=== PATIENT | female | born 1960 | race Hispanic/Latino ===

== ENCOUNTER → 2017-11-17 | Outpatient (CLI) | payer SELFPAY ==
[~2017-11-17] MED LIST: ASPI-555 PO; CYCL10 PO; ESCI20TA36 PO; ESOM20CA31 PO; FOLI1TAB15 PO; GABA-531 PO; INVA1IVPB IV; LEVO5TAB13 PO; METH2.5T6 PO; METO25TA6 PO; OXYB5TAB10 PO; PRED5TAB PO; PREM3 PO; PROM12.510 PO
== END | disposition home or self-care (01) ==
LOC: RAH 10:53
PROVIDERS: ATTEND Urology
DX: N11.0 Nonobstructive reflux-associated chronic pyelonephritis (principal)
CPT/HCPCS: 76770

== ENCOUNTER 2018-10-27 16:50 | Emergency (ER) | payer OTHER, SELFPAY ==
[2018-10-27] MEDS ORDERED: LIDOCAINE HCL 2% VISCOUS 15 ML UDCUP ONE (17:25)
[2018-10-27] MEDS ORDERED: MAG HYDROX/AL HYDROX/SIMETH ES 30 ML SUSP UDCUP ONE (17:25)
[2018-10-27] MEDS ORDERED: FAMOTIDINE 20MG TAB 20 MG TAB ONE (17:25)
[2018-10-27 17:26] LABS: APPEARANCE,URINE CLEAR (CLEAR); BILIRUBIN,URINE NEGATIVE (NEGATIVE); COLOR,URINE YELLOW (YELLOW); GLUCOSE, URINE (UA) NEGATIVE (NEGATIVE); KETONES,URINE 5 mg/dL (NEGATIVE); LEUKOCYTE ESTERASE ,URINE NEGATIVE (NEGATIVE); NITRATE,URINE NEGATIVE (NEGATIVE); OCCULT BLOOD,URINE LARGE (NEGATIVE); PROTEIN,URINE 100 mg/dL (NEGATIVE); UROBILINOGEN,URINE 0.2 mg/dL (0.2-1.0)
[2018-10-27] MEDS ORDERED: ONDANSETRON ODT 4 MG TAB ONE (17:26)
[2018-10-27 17:35] LABS: BACTERIA,URINE Few /HPF (None Seen); RBC,URINE 0-1 /HPF (0-1)
[2018-10-27 17:36] LABS: AMORPHOUS SEDIMENT,UR Few /LPF (None Seen); MUCUS,URINE Few LPF (None Seen); SQUAMOUS EPITHELIAL CELL,UR Few /HPF (0-2)
[2018-10-27 17:55] LABS: BASOPHILS % (AUTO) 1.2 % (0.0-5.0); EOSINOPHILS % (AUTO) 0.1 % (0.0-8.0); HEMATOCRIT 33.8 % (36-48); MEAN CORPUSCULAR HEMOGLOBIN 30.7 pg (27.0-33.0); MEAN CORPUSCULAR HGB CONC 33.5 g/dL (32.0-36.0); MEAN CORPUSCULAR VOLUME 91.6 fL (79-99); MONOCYTES % (AUTO) 8.9 % (3.0-13.0); NEUTROPHILS % (AUTO) 72.8 % (40.0-77.0); PLATELET COUNT (AUTO) 365 K/uL (130-400); RED BLOOD CELL COUNT(AUTO) 3.69 MIL/uL (4.00-5.50); RED CELL DISTRIBUTION WIDTH 15.9 % (11.0-15.5); WHITE BLOOD COUNT (AUTO) 7.3 K/uL (4.8-10.8)
[2018-10-27 18:09] LABS: ALBUMIN 3.4 g/dL (3.5-5.0); BILIRUBIN,TOTAL 0.6 mg/dL (0.2-1.0); TOTAL PROTEIN, SERUM 7.3 g/dL (6.0-8.3)
[2018-10-27] MEDS ORDERED: PROMETHAZINE HCL 25 MG/ML 1ML AMPULE IM ONE (20:15)
== END 2018-10-27 20:44 | disposition home or self-care (01) ==
LOC: EDH 16:52
DX: K29.70 Gastritis, unspecified, without bleeding (principal); R94.5 Abnormal results of liver function studies; I10 Essential (primary) hypertension; E78.5 Hyperlipidemia, unspecified; K21.9 Gastro-esophageal reflux disease without esophagitis; M19.90 Unspecified osteoarthritis, unspecified site; Z95.1 Presence of aortocoronary bypass graft; Z88.2 Allergy status to sulfonamides
CPT/HCPCS: 36415; 80053; 81001; 83690; 85025; 96374; 99284; J2550

== ENCOUNTER → 2018-11-03 | Outpatient (CLI) | payer OTHER | END | disposition home or self-care (01) | LOC: RAH 07:47 | PROVIDERS: ATTEND Internal Medicine Gastroenterology | DX: K76.0 Fatty (change of) liver, not elsewhere classified (principal); K80.20 Calculus of gallbladder without cholecystitis without obstruction | CPT/HCPCS: 76700 ==

== ENCOUNTER 2019-12-14 15:50 | Observation (INO) | payer OTHER ==
[~2019-12-14] VITALS: Ht 152.4 cm; Wt 56.7 kg
[~2019-12-14 15:50] MED LIST changes: -ASPI-555 PO; +ASPI-556 PO; -OXYB5TAB10 PO; +OXYB5TAB15 PO; -PROM12.510 PO; +PROM12.513 PO
[2019-12-14 16:13] LABS: EOSINOPHILS % (AUTO) 3.7 % (0.0-8.0); HEMATOCRIT 36.4 % (36-48); LYMPHOCYTES % (AUTO) 36.8 % (21.0-51.0); MEAN CORPUSCULAR HEMOGLOBIN 29.4 pg (27.0-33.0); MEAN CORPUSCULAR HGB CONC 32.1 g/dL (32.0-36.0); MEAN CORPUSCULAR VOLUME 91.5 fL (79-99); MONOCYTES % (AUTO) 5.6 % (3.0-13.0); NEUTROPHILS % (AUTO) 52.7 % (40.0-77.0); PLATELET COUNT (AUTO) 204 K/uL (130-400); RED BLOOD CELL COUNT(AUTO) 3.98 MIL/uL (4.00-5.50); RED CELL DISTRIBUTION WIDTH 13.4 % (11.0-15.5); WHITE BLOOD COUNT (AUTO) 5.2 K/uL (4.8-10.8)
[2019-12-14 16:50] LABS: CREATININE 1.2 mg/dL (0.5-1.5); POTASSIUM 3.6 mmol/L (3.5-5.1)
[2019-12-14 16:57] LABS: ALBUMIN 3.4 g/dL (3.5-5.0); BILIRUBIN,TOTAL 0.7 mg/dL (0.2-1.0); TOTAL PROTEIN, SERUM 6.4 g/dL (6.0-8.3)
[2019-12-14] MEDS ORDERED: GLUCAGON 1MG KIT 1 MG ML IM PRN (19:30)
[2019-12-14] MEDS ORDERED: DEXTROSE 50%-WATER 50 ML DISP.SYRIN IV PRN (19:30)
[2019-12-14] MEDS: INSULIN R PO SS1 SQ SCH (21:00)
[2019-12-14 21:43] LABS: APPEARANCE,URINE Clear (CLEAR); BILIRUBIN,URINE Negative (NEGATIVE); COLOR,URINE Yellow (YELLOW); GLUCOSE, URINE (UA) Negative (NEGATIVE); KETONES,URINE Negative (NEGATIVE); LEUKOCYTE ESTERASE ,URINE Negative (NEGATIVE); NITRATE,URINE Negative (NEGATIVE); OCCULT BLOOD,URINE Negative (NEGATIVE); PROTEIN,URINE Negative (NEGATIVE)
--- NOTE | 2019-12-14 22:40 | NUR ---
ADMIT PT ADMITTED TO ROOM 330 ON OBS STATUS. NO COMPLAINTS VERBALIZED.. NO DIZZINESS REPORTED. ADMISSION ASSESSMENT DONE. ADMISSION CARE DONE. ADMISSION DATA BASE COMPLETED. UPDATED HOME MEDS IN THE COMPUTER. RE-ITERATED ON FALL PRECAUTIONS, PT VERBALIZES UNDERSTANDING. ORIENTED TO ROOM AND UNIT. IN FOR MORE CARE AND MANAGEMENT. Addendum: 12/15/19 at 0023 by JAMES CA RN RN Amended: Links added.
[2019-12-14 23:00] VITALS: BP 144/59
[2019-12-14] MEDS ORDERED: OMEP40CA13 PO (23:12)
[2019-12-14] MEDS ORDERED: METH1VIA6 IJ (23:12)
[2019-12-14] MEDS ORDERED: ACET1TAB12 PO (23:12)
[2019-12-14] MEDS ORDERED: ROSU40TA21 PO (23:12)
[2019-12-14] MEDS ORDERED: AEC81 PO (23:12)
[2019-12-14] MEDS ORDERED: ESCI20TA PO (23:12)
[2019-12-14] MEDS ORDERED: LOSA25TA41 PO (23:12)
[2019-12-14] MEDS ORDERED: TIZA4CAP8 PO ×2 (23:12)
[2019-12-14] MEDS ORDERED: FOLI0.4T2 PO (23:12)
[2019-12-14] MEDS ORDERED: DESI25TA16 PO (23:12)
[2019-12-14] MEDS ORDERED: ZOLP5TAB8 PO (23:12)
[2019-12-14] MEDS ORDERED: ALPR0.5T8 PO (23:12)
--- NOTE | 2019-12-15 02:00 | NUR ---
ANXIETY PT VERBALIZES FEELING OF ANXIETY. TRIED TO CALM PT DOWN. V/S MONITORED BY PCP, STABLE. 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 PT VERBALIZES UNDERSTANDING. WILL MONITOR PT.
[2019-12-15 03:00] VITALS: BP 130/69
--- NOTE | 2019-12-15 03:45 | NUR ---
SLEEP PT COMPLAINTS OF INABILITY TO SUSTAIN SLEEP AND HAVING ANXIETY. CLAIMS HER MASK IS MAKING HER MORE ANXIOUS. RE-EXPLAINED TO PT THAT MD HAS NOT RESUMED HER MEDS DUE TO HYPOTENSION WHEN ADMITTED. ALSO INFORMED THAT SHE COULD REMOVE HER MASK FOR NOW. ENCOURAGED TO TRY TO RELAX AND REST. WILL RE-ASSESS PT. Addendum: 12/15/19 at 0422 by JAMES CA RN RN Amended: Links added.
--- NOTE | 2019-12-15 05:01 | NUR ---
ROUNDS NO EPISODES OF HYPOTENSION NOR DIZZINESS REPORTED SINCE ADMISSION. ONLY CONCERN OF PT IS HER INABILITY TO SUSTAIN SLEEP. KEPT COMFORTABLE IN BED. FOR MORE CARE.
[2019-12-15] MEDS: INSULIN R PO SS1 SQ SCH ×4 (06:06→21:00)
[2019-12-15 07:24] VITALS: BP 151/72
[2019-12-15] MEDS: TIZANIDINE HCL 2 MG TABLET PO SCH ×2 (09:00→09:18)
[2019-12-15] MEDS: GABAPENTIN 300 MG CAPSULE PO SCH ×3 (09:17→19:48)
[2019-12-15] MEDS: ASPIRIN 81 MG EC TAB PO SCH (09:18)
[2019-12-15] MEDS: ALPRAZOLAM 0.5 MG TABLET PO SCH ×2 (09:18→19:43)
[2019-12-15] MEDS: FOLIC ACID 1 MG TABLET PO SCH (09:18)
[2019-12-15] MEDS: PANTOPRAZOLE SODIUM 40 MG TABLET.DR PO SCH (09:18)
[2019-12-15] MEDS ORDERED: TOCI162D SQ (09:20)
[2019-12-15 10:37] VITALS: BP 119/78
[2019-12-15 15:12] VITALS: BP 113/75
--- NOTE | 2019-12-15 16:00 | NUR ---
MET W PATIENT FOR D/C PLANNING PATIENT WAS SEEN EARLIER BY THIS CM, BUT TOO DROWSY TO ANSWER QUESTIONS, REVISITED THIS AFTERNOON, PATIENT SITTING UP IN BED WITH NOTEBOOK AND LIST OF ALL HOME MEDS, STATES TOOK A MED FOR HEADACHE THAT SHE DOES OT NORMALLY TAKE- ALL SYMPTOMS STARTED AFTER THAT. DOES NOT REMEMBER TALKING OT CASE MANAGEMENT IN THE MORNING STATES LIVES ALONE, WORKS AT A [employer], DRIVES, HAS A CANE AND A WALKER BUT DOES NTO USE- SUFFERS FROM CHRONIC PAIN- NO HOME OR PROVIDER SERVICES DCP IS HOME . SON TO PROVIDE TRANSPORT Addendum: 12/16/19 at 1635 by TONI RODRIGUEZ RN CM Amended: Links added.
[2019-12-15] MEDS ORDERED: POTASSIUM CHLORIDE 20MEQ/100ML 100 ML IV PRN (17:45)
[2019-12-15] MEDS ORDERED: LIDOCAINE HCL-MPF 1% 2ML VIAL IV PRN (17:45)
[2019-12-15] MEDS ORDERED: POTASSIUM CHLORIDE 10% ELIXIR 20 MEQ/15 ML UDCUP PO PRN (17:45)
[2019-12-15] MEDS ORDERED: MAGNESIUM 2GM PREMIX 50ML 50 ML IV PRN (17:45)
--- NOTE | 2019-12-15 19:15 | NUR ---
COURTNEY VALDEZ SPOKE WITH THE PT AT BEDSIDE. WANTS TO MONITOR PT OVERNIGHT. IV FLUIDS ORDERED. ORTHOSTATIC VS ORDERED FOR THE AM. WILL PLACE ORDERS AND INITIATE ORDERS.
[2019-12-15] MEDS ORDERED: AMITRIPTYLINE HCL 25 MG TABLET PO SCH (21:00)
[2019-12-15] MEDS ORDERED: ATORVASTATIN CALCIUM 40 MG TABLET PO SCH (21:00)
[2019-12-15] MEDS ORDERED: ZOLPIDEM TARTRATE 5 MG TAB PO SCH (21:00)
[2019-12-15 21:26] VITALS: BP_SYST 11; BP_SYST 111; BP_DIAS 93
[2019-12-15] MEDS: SODIUM CHLORIDE 0.9% 1000ML 1,000 ML IV SCH (21:45)
[2019-12-16] VITALS (7 sets, daily range): BP systolic 100–121; BP diastolic 57–81
[2019-12-16 05:00] LABS: BASOPHILS % (AUTO) 0.8 % (0.0-5.0); EOSINOPHILS % (AUTO) 3.9 % (0.0-8.0); LYMPHOCYTES % (AUTO) 35.5 % (21.0-51.0); MEAN CORPUSCULAR HEMOGLOBIN 29.6 pg (27.0-33.0); MEAN CORPUSCULAR HGB CONC 32.3 g/dL (32.0-36.0); MEAN CORPUSCULAR VOLUME 91.6 fL (79-99); MONOCYTES % (AUTO) 8.5 % (3.0-13.0); NEUTROPHILS % (AUTO) 51.1 % (40.0-77.0); PLATELET COUNT (AUTO) 176 K/uL (130-400); RED BLOOD CELL COUNT(AUTO) 3.82 MIL/uL (4.00-5.50); RED CELL DISTRIBUTION WIDTH 13.4 % (11.0-15.5); WHITE BLOOD COUNT (AUTO) 5.3 K/uL (4.8-10.8)
[2019-12-16 05:38] LABS: CREATININE 0.8 mg/dL (0.5-1.5); POTASSIUM 3.5 mmol/L (3.5-5.1)
[2019-12-16] MEDS: INSULIN R PO SS1 SQ SCH ×3 (06:03→16:30)
[2019-12-16] MEDS: PANTOPRAZOLE SODIUM 40 MG TABLET.DR PO SCH (08:33)
[2019-12-16] MEDS: FOLIC ACID 1 MG TABLET PO SCH (08:33)
[2019-12-16] MEDS: ASPIRIN 81 MG EC TAB PO SCH (08:33)
[2019-12-16] MEDS: ALPRAZOLAM 0.5 MG TABLET PO SCH (08:34)
[2019-12-16] MEDS: GABAPENTIN 300 MG CAPSULE PO SCH ×2 (08:34→13:15)
[2019-12-16] MEDS: SODIUM CHLORIDE 0.9% 1000ML 1,000 ML IV SCH (08:35)
[2019-12-16] MEDS ORDERED: METOPROLOL TARTRATE 25 MG TAB ONE (13:04)
[2019-12-16] MEDS ORDERED: METOPROLOL TARTRATE 25 MG TAB PO SCH (21:00)
== END 2019-12-16 18:40 | disposition home or self-care (01) ==
LOC: EDH 15:50 → EDHIP 18:54 → 3AH 21:46
PROVIDERS: ADMIT Internal Medicine; ATTEND Internal Medicine
DX: I95.2 Hypotension due to drugs (principal); M06.9 Rheumatoid arthritis, unspecified; K21.9 Gastro-esophageal reflux disease without esophagitis; E78.5 Hyperlipidemia, unspecified; I25.810 Atherosclerosis of coronary artery bypass graft(s) without angina pectoris; F41.9 Anxiety disorder, unspecified; F32.9 Major depressive disorder, single episode, unspecified; I10 Essential (primary) hypertension; Z88.2 Allergy status to sulfonamides; Z87.440 Personal history of urinary (tract) infections
CPT/HCPCS: 36415 ×2; 80048; 80053; 81003; 82948 ×7; 84484; 85025 ×2; 93005; 99291; A4510; G0378 ×7

== ENCOUNTER 2020-01-14 00:19 | Emergency (ER) | payer OTHER | END 2020-01-14 03:59 | disposition home or self-care (01) | LOC: EDH 00:19 | DX: I95.9 Hypotension, unspecified (principal); M19.90 Unspecified osteoarthritis, unspecified site; K21.9 Gastro-esophageal reflux disease without esophagitis; E11.9 Type 2 diabetes mellitus without complications; I10 Essential (primary) hypertension; Z88.2 Allergy status to sulfonamides ==

== ENCOUNTER 2023-02-20 12:20 | Emergency (ER) | payer BC, OTHER ==
[~2023-02-20] VITALS: Ht 152.4 cm; Wt 72.6 kg
[~2023-02-20 12:20] MED LIST changes: +ACET1TAB12 PO; +AEC81 PO; +ALPR0.5T8 PO; -ASPI-556 PO; -CYCL10 PO; +ESCI20TA PO; -ESCI20TA36 PO; -ESOM20CA31 PO; +FOLI0.4T6 PO; -FOLI1TAB15 PO; -GABA-531 PO; -INVA1IVPB IV; -LEVO5TAB13 PO; +METH1VIA6 IJ; -METH2.5T6 PO; +OMEP40CA21 PO; -OXYB5TAB15 PO; -PRED5TAB PO; -PREM3 PO; -PROM12.513 PO; +ROSU40TA21 PO; +TOCI162D SQ; +ZOLP5TAB8 PO
[2023-02-20 13:17] VITALS: BP 151/84; PULSE 75; RESP 16; O2SAT 99
[2023-02-20] MEDS ORDERED: IBUPROFEN 600 MG TABLET PO ONE (15:00)
[2023-02-20] MEDS ORDERED: PREDNISONE 20 MG TABLET PO ONE (15:00)
[2023-02-20] MEDS ORDERED: PRED20TA3 PO (15:26)
== END 2023-02-20 15:34 | disposition home or self-care (01) ==
LOC: EDH 12:20
DX: U07.1 COVID-19 (principal); H69.81 Other specified disorders of Eustachian tube, right ear; I10 Essential (primary) hypertension; E78.00 Pure hypercholesterolemia, unspecified; F32.A Depression, unspecified; Z90.49 Acquired absence of other specified parts of digestive tract; Z90.710 Acquired absence of both cervix and uterus; Z79.899 Other long term (current) drug therapy

== ENCOUNTER → 2025-03-29 | Outpatient (CLI) | payer OTHER ==
[~2025-03-29] MED LIST changes: +PRED20TA3 PO; -ROSU40TA21 PO; +ROSU40TA88 PO; +ZOLP5TAB16 PO; -ZOLP5TAB8 PO
--- NOTE | 2025-03-29 17:39 | HMCIMG ---
EXAM: CT Head Without Intravenous Contrast. CLINICAL HISTORY: Contusion. TECHNIQUE: Axial computed tomography images of the head/brain without intravenous contrast. Dose reduction technique was used including one or more of the following: automated exposure control, adjustment of mA and kV according to patient size, and/or iterative reconstruction. COMPARISON: None. FINDINGS: BRAIN: No acute intraparenchymal hemorrhage. No mass lesion. No CT evidence for acute territorial infarct. Moderate atrophy and moderate chronic ischemic changes. Right sided old lacunar infarct. VENTRICLES: No hydrocephalus. ORBITS: The orbits are unremarkable. SINUSES AND MASTOIDS: The paranasal sinuses and mastoid air cells are clear. SOFT TISSUES: No significant facial or scalp soft tissue swelling evident. No radiopaque foreign body is seen. BONES: No acute skull fracture. IMPRESSION: 1. No acute intracranial abnormality. 2. Moderate atrophy and moderate chronic ischemic changes. 3. Right-sided old lacunar infarct. /[place]
--- NOTE | 2025-03-29 18:52 | HMCIMG ---
EXAM: CT Maxillofacial with or without Intravenous Contrast. CLINICAL HISTORY: 64 year old female with contusion on head. TECHNIQUE: Axial computed tomography images of the face with or without intravenous contrast. Sagittal and coronal reformations performed. Dose reduction technique was used including one or more of the following: automated exposure control, adjustment of mA and kV according to patient size, and/or iterative reconstruction. CONTRAST: NONE; COMPARISON: None provided. FINDINGS: BONES: Mild degenerative changes of the upper cervical spine. No acute fracture or focal osseous lesion. The mandible is intact. SOFT TISSUES: The soft tissues are unremarkable. SINUSES: The sinuses are clear. ORBITS: The orbits are normal. No retrobulbar hematoma or mass. IMPRESSION: 1. No acute findings within maxillofacial CT. /[place]
== END | disposition home or self-care (01) ==
LOC: RAH 13:58
PROVIDERS: ATTEND Internal Medicine
DX: S00.83XD Contusion of other part of head, subsequent encounter (principal); G31.9 Degenerative disease of nervous system, unspecified; I67.82 Cerebral ischemia; M47.812 Spondylosis without myelopathy or radiculopathy, cervical region; W19.XXXD Unspecified fall, subsequent encounter; X58.XXXD Exposure to other specified factors, subsequent encounter
CPT/HCPCS: 70450; 70486

== ENCOUNTER 2025-04-08 11:03 | Emergency (ER) | payer OTHER ==
[~2025-04-08] VITALS: Ht 152.4 cm; Wt 70.8 kg
--- NOTE | 2025-04-08 11:33 | ERN ---
ED Note History of Present Illness Stated Complaint: HEADACHE Chief Complaint: Headache Time Seen by MD: 11:08 Time Seen by Midlevel: 11:10 Dictation: Ms. Steele is a 64 year old female with history of CAD/CABG, hypertension, hyperlipidemia, depression, anxiety, and rheumatoid arthritis presented to the emergency department this morning for evaluation of headache. Patient states she sustained a fall (tripped on curb). She sustained a abrasion contusion to her left knee and struck face on concrete. Her glasses were broken and she had bruising to her face/cheeks/under eyes. She had persistent dizziness and headache so when she went to her PCP he ordered outpatient CTs. She had maxillofacial and head CTs performed on 03/29. Negative for fractures facial bones/orbits. CT head revealed atrophy as well as old right-sided lacunar infarct. Allergies: Coded Allergies: Sulfa (Sulfonamide Antibiotics) (Unverified Allergy, Unknown, 11/07/16) Home Meds Active Scripts Prednisone (Prednisone) 20 Mg Tablet, 2 TAB PO DAILY for 5 Days, #10 TAB 0 Refills Prov:FLORIAN LIM CARDIAC SONOGRAPHER 02/20/23 Reported Medications Tocilizumab (Actemra) 162 Mg/0.9 Ml Disp.syrin, 162 MG SQ weekly, DIS.SYR 12/15/19 Omeprazole (Omeprazole) 40 Mg Capsule.dr, 40 MG PO DAILY, CAP 12/14/19 Methotrexate Sodium/Pf (Methotrexate 1 gm Vial) 1 Gm Vial, 0.06 GM IJ QWEEK, VIAL 12/14/19 Folic Acid (Folic Acid) 0.4 Mg Tablet, 0.4 MG PO DAILY, TAB 12/14/19 Aspirin (ASPIRIN 81 MG ECTAB) 81 Mg Ectab, 81 MG PO DAILY, TAB.EC 12/14/19 Acetaminophen with Codeine (Tylenol with Codeine #3 Tablet) 1 Each Tablet, 1 TAB PO QIDP PRN for PAIN LEVEL 5 TO 10, TAB 12/14/19 Rosuvastatin Calcium (Rosuvastatin Calcium) 40 Mg Tablet, 40 MG PO HS, TAB 12/14/19 Zolpidem Tartrate (Zolpidem Tartrate) 5 Mg Tablet, 5 MG PO HS, TAB 12/14/19 Alprazolam (Alprazolam) 0.5 Mg Tablet, 0.5 MG PO BID, TAB 12/14/19 Escitalopram Oxalate (Lexapro) 20 Mg Tablet, 20 MG PO DAILY, TAB 12/14/19 Metoprolol Tartrate (Metoprolol Tartrate) 25 Mg Tablet, 25 MG PO BID, TAB 11/07/16 Past Medical History Past Medical History: CAD, High Cholesterol, Hypertension, Other Additional Past Medical Hx: Rheumatoid arthritis, urinary incontinence Surgical History: CABG Family History: Negative Social History: Negative, Lives with family History: Not Applicable RN Note Reviewed/Agreed w/PFSH: Yes Review of System Dictation REVIEW OF SYSTEMS: CONSTITUTIONAL: Patient denies fevers, chills, sweats and weight changes. Reports fatigue and general weakness. EYES: Patient denies any visual symptoms. EARS, NOSE, AND THROAT: No difficulties with hearing. No symptoms of rhinitis or sore throat. CARDIOVASCULAR: Patient denies chest pains, palpitations, orthopnea and paroxysmal nocturnal dyspnea. RESPIRATORY: No dyspnea on exertion, no wheezing or cough. GI: No vomiting, diarrhea, constipation, abdominal pain, hematochezia or melena. Reports slight nausea. : No urinary hesitancy or dribbling. No nocturia or urinary frequency. No abnormal urethral discharge. MUSCULOSKELETAL: No myalgias or arthralgias. NEUROLOGIC: No seizures. Patient denies numbness, tingling or weakness. Denies focal weakness/paresthesia. Denies vision changes. Denies dysarthria. Denies dysphasia. Reports intermittent headache to right parietal. She states that she sustained a fall three weeks ago and has been experiencing headaches since. She had normal" CT scans of the facial bones and head as outpatient on 03/29. PSYCHIATRIC: Patient denies problems with mood disturbance. No problems with anxiety. ENDOCRINE: No excessive urination or excessive thirst. DERMATOLOGIC: Patient denies any rashes or skin changes. Initial Vital Sign VS Vital Signs Date Time Temp Pulse Resp B/P (MAP) Pulse Ox O2 Delivery O2 Flow Rate FiO2 04/08/25 11:06 99.9 99 16 196/105 98 Room Air 0 04/08/25 11:12 21 Physical Exam Dictation Vital signs: Reviewed. Temp 99.9 Constitutional: Tearful/uncomfortable Head/Face: Normocephalic, atraumatic. Eyes: Periorbital areas with no swelling, redness, or edema. Lids and lashes are normal. Conjunctival injection is absent. Sclera anicteric. Pupils equal, round, reactive to light; ENT: Pinnas intact and no signs of trauma or erythema. Ear canals clear and no discharge. TMs no erythema. No nasal discharge or bleeding noted. Oropharynx with no exudate, redness, swelling, masses, exudates, or evidence of obstruction. Uvula midline. Mucous membranes moist. Neck: Trachea midline, no masses palpated, and no cervical lymphadenopathy. No swelling. Supple, full range of motion. Chest/Axilla: No tenderness, no crepitus, no paradoxical movement, no retractions. Cardiovascular: Regular rate, regular rhythm, no murmur, no gallops. Symmetric pulses. No peripheral edema. biological technical officer reflecting sinus rhythm. repeat BP 181/83. Respiratory: Respirations even and unlabored. Lung sounds clear; no wheezes, rales or rhonchi. Room air spo2 99% Gastrointestinal: Inspection is normal. No distention is appreciated. Bowel sounds are normal. No mass or organomegaly . There is no tenderness. No rebound. No rigidity. No voluntary or involuntary guarding. No Bishop's sign. Neurological: Normal speech, gross motor function intact, gross sensory function intact. No focal weakness/Paresthesia. Speech is clear. Ambulating with steady gait to bathroom. NIHSS=0. Musculoskeletal/Extremities: All extremities have full range of motion, no pain or tenderness on palpation. Symmetric pulses. Integumentary: Intact. Skin is normal color, warm and dry. Cap refill less than 3 seconds. Abrasion to left knee; healing well. No surrounding erythema or warmth. No drainage. She has some fading ecchymosis under both eyes; states this occurred when she had a fall three weeks ago and her glasses broke. Results (Laboratory/Radiology) Laboratory/Radiology Laboratory Tests Test 04/08/25 11:30 04/08/25 11:39 04/08/25 11:45 Urine Color LIGHT-YELLOW (YELLOW) Urine Appearance CLEAR (CLEAR) Urine pH 7.0 (5.0-8.0) Urine Specific [place] 1.017 (1.001-1.031) Urine Protein NEGATIVE mg/dL (NEGATIVE) Urine Glucose (UA) TRACE mg/dL (NEGATIVE) H Urine Ketones NEGATIVE mg/dL (NEGATIVE) Urine Occult Blood +- (TRACE) (NEGATIVE) H Urine Nitrate NEGATIVE (NEGATIVE) Urine Bilirubin NEGATIVE mg/dL (NEGATIVE) Urine Urobilinogen 0.2 mg/dL (0.2-1.0) Urine Leukocyte Esterase NEGATIVE Jens/uL Urine RBC 2-5 /HPF (0-1) H Urine WBC 0-1 /HPF (0-1) Urine Squamous Epithelial Cells RARE /HPF (0-2) Urine Bacteria None /HPF (None Seen) White Blood Count 8.1 K/uL (4.8-10.8) Red Blood Count 3.99 MIL/uL (4.00-5.50) L Hemoglobin 12.5 g/dL (12.0-16.0) Hematocrit 39.4 % (36-48) Mean Corpuscular Volume 98.7 fL (79-99) Mean Corpuscular Hemoglobin 31.3 pg (27.0-33.0) Mean Corpuscular Hemoglobin Concent 31.7 g/dL (32.0-36.0) L Red Cell Distribution Width 14.8 % (11.0-15.5) Platelet Count 279 K/uL (130-400) Mean Platelet Volume 8.9 fL (7.5-10.5) Immature Granulocyte % (Auto) 0.2 % (0-1) Neutrophils (%) (Auto) 81.7 % (40.0-77.0) H Lymphocytes (%) (Auto) 11.4 % (21.0-51.0) L Monocytes (%) (Auto) 5.9 % (3.0-13.0) Eosinophils (%) (Auto) 0.6 % (0.0-8.0) Basophils (%) (Auto) 0.2 % (0.0-5.0) Neutrophils # (Auto) 6.6 K/uL (1.8-7.7) Lymphocytes # (Auto) 0.9 K/uL (1.0-4.8) L Monocytes # (Auto) 0.5 K/uL (0.1-1.0) Eosinophils # (Auto) 0.05 K/uL (0.00-0.70) Basophils # (Auto) 0.02 K/uL (0.00-0.20) Absolute Immature Granulocyte (auto 0.02 K/uL (0-1) Nucleated Red Blood Cells 0.0 % (0.0-0.19) Sodium Level 140 mmol/L (136-145) Potassium Level 4.0 mmol/L (3.5-5.1) Chloride Level 104 mmol/L (101-111) Carbon Dioxide Level 27 mmol/L (21-32) Blood Urea Nitrogen 10 mg/dL (7-18) Creatinine 0.9 mg/dL (0.5-1.0) Glomerular Filtration Rate Calc 71 mL/min (>90) Random Glucose 229 mg/dL (70-105) H Total Calcium 8.2 mg/dL (8.5-10.1) L Total Bilirubin 0.3 mg/dL (0.2-1.0) Direct Bilirubin 0.1 mg/dL (0.0-0.3) Aspartate Amino Transf (AST/SGOT) 21 U/L (10-37) Alanine Aminotransferase (ALT/SGPT) 27 U/L (12-78) Alkaline Phosphatase 80 U/L (50-136) Total Protein 6.8 g/dL (6.0-8.3) Albumin 2.8 g/dL (3.5-5.0) L Influenza Type A Antigen Negative For Type A Influenza Type B Antigen Negative For Type B SARS-CoV-2, RNA, NAAT NEGATIVE SARS CoV-2 Labs Reviewed?: Yes ED Course ED Course Orders Procedure Category Date Status Time Cbc With Differential LAB 04/08/25 Complete 11:24 Basic Metabolic Panel LAB 04/08/25 Complete 11:24 Hepatic Function Panel LAB 04/08/25 Complete 11:24 Influenza Type A & B, LAB 04/08/25 Complete Rapid 11:24 Covid Rna Naat LAB 04/08/25 Complete 11:24 Urinalysis Profile LAB 04/08/25 Complete 11:24 Ketorolac PHA 04/08/25 Complete Tromethamine 15mg/Ml 12:00 Prochlorperazine PHA 04/08/25 Complete 10mg/2ml Inj 13:00 Diphenhydramine Hcl PHA 04/08/25 Complete (Benadryl Inj) 13:00 Ondansetron 4mg Inj PHA 04/08/25 Complete (Zofran 4mg Inj) 13:00 0.9% Nacl 500ml PHA 04/08/25 Complete Iv.Soln (Ns 500ml 13:00 Current Medications Medications (Trade) Dose Ordered Sig/Alejandro Route PRN Reason Start Time Stop Time Status Last Admin Dose Admin Diphenhydramine HCl (BENAdryl INJ) 25 mg ONCE ONCE IV 04/08/25 13:00 04/08/25 13:01 DC 04/08/25 13:20 Ketorolac Tromethamine (toRADol) 15 mg ONCE ONCE IM 04/08/25 12:00 04/08/25 12:01 DC 04/08/25 13:21 Ondansetron HCl (zoFRAN 4MG INJ) 4 mg ONCE ONCE IVP 04/08/25 13:00 04/08/25 13:01 DC 04/08/25 13:21 Prochlorperazine Edisylate (Compazine 10mg/ 2ml Inj) 10 mg ONCE ONCE IV 04/08/25 13:00 04/08/25 13:01 DC 04/08/25 13:20 Sodium Chloride 500 ml @ 0 mls/hr ONCE ONCE IV 04/08/25 13:00 04/08/25 13:01 DC 04/08/25 13:21 Vital Signs Date Time Temp Pulse Resp B/P (MAP) Pulse Ox O2 Delivery O2 Flow Rate FiO2 04/08/25 11:33 99.3 85 20 181/83 99 Room Air* 0 21 04/08/25 11:12 99.9 99 16 196/105 98 Room Air* 0 21 04/08/25 11:06 99.9 99 16 196/105 98 Room Air 0 Patient arrived with right-sided headache which she rated 8/10 and accompanied by slight nausea. NIHSS=0. Initially hypertensive; repeat 134/67 She had moderate early from IV dose of Toradol. Additional doses Compazine, Zofran, and Benadryl were administered as well as NS 500 mL IV as bolus. She reports abatement of headache. Suspect migraine type headache. Laboratory findings as noted below. No elevation of WBCs. Glucose 229 (patient states she has been drinking coax and it has been elevated), Ca 8.2, and albumin 2.8. Coronavirus SARS antigen and influenza negative. Both she and her son were advised of findings and advised she would need to follow up with her primary care provider for further management. List of red flag symptoms provided. Medical Decision Making MDM MDM: Differential diagnosis: Postconcussive syndrome. Acute dehydration, UTI, electrolyte derangement, hypertensive urgency, migraine headaches Rationale: Tests considered and ordered secondary to shared decision making include: Lab, review of recent CT Previous outside records reviewed: Old ER visits. Risk of complication and/or morbidity or mortality of patient management: None Medications-Per medication reconciliation Need for hospitalization: Patient does not meet criteria for hospitalization. Need for emergency major/minor surgery: No There are no social concerns with this patient. Prescription drug management: Compazine, Naprosyn Prescriptions will include symptomatic care Patient's prior external medical records from other ER visits were reviewed by me as indicated. Prior testing and results from previous visits were reviewed. Prior tests were taken into account with medical decision making and resource utilization, independent historian/historians were used to obtain complete medical history. I independently interpreted the test that were performed, results were reviewed by me and considered findings on radiology if ordered. Medical management and examination interpretation discussions were had by me with other qualified healthcare professionals as indicated for the patient's care. DX & DISP Disposition: Discharge Departure Condition: Stable Scripts Prochlorperazine Maleate (Prochlorperazine Maleate) 5 Mg Tablet 1 TAB PO QID for headache or nauseas for 5 Days, #20 TAB 0 Refills Prov: JOSE DANIEL LOPEZ PEDIATRIC OPHTHALMOLOGIST 04/08/25 Naproxen (Naproxen) 250 Mg Tablet 1 TAB PO BID for pain for 7 Days, #14 TAB 0 Refills Prov: JOSE DANIEL LOPEZ PEDIATRIC OPHTHALMOLOGIST 04/08/25 Additional Instructions: You were evaluated and treated in the emergency department for migraine type headache. Your symptoms improved after receiving IV medications. It is common to feel tired, groggy or mildly foggy for several hours after migraine treatment. Mild headache may return; this does not necessarily mean something series. Nausea can also linger briefly. You may take naproxen every 6 hours as needed for discomfort. You may take Compazine every 6 hours as needed for headache or nausea. Do not drive, drink alcohol or operate machinery. Return to the emergency department immediately if you develop: Sudden, severe" worst headache of your life . Headache that is different from her usual headaches. Persistent vomiting, confusion, weakness, trouble speaking, vision changes, or fainting. Chest pain, shortness of breath, or irregular heartbeat. You need to schedule a follow up with your primary care provider within the next few gaze for ongoing migraine management and preventative therapy if needed. She had a headache diary (time, severity, triggers, meds used, an blood pressure readings) this helps guide future treatment. Referrals: CELSO VALDEZ MD (PCP) Time of Disposition: 14:33 JOSE DANIEL LOPEZ NP Apr 08, 2025 11:33
[2025-04-08 11:38] LABS: APPEARANCE,URINE CLEAR (CLEAR); GLUCOSE, URINE (UA) TRACE mg/dL (NEGATIVE); LEUKOCYTE ESTERASE ,URINE NEGATIVE Leu/uL (NEGATIVE); NITRATE,URINE NEGATIVE (NEGATIVE); OCCULT BLOOD,URINE +- (TRACE) (NEGATIVE)
[2025-04-08 11:39] LABS: ADD UA MICROSCOPIC YES
[2025-04-08 11:40] LABS: SQUAMOUS EPITHELIAL CELL,UR RARE /HPF (0-2)
[2025-04-08 11:43] LABS: IMMATURE GRANULOCYTE ABSOLUTE 0.02 K/uL (0-1); NUCLEATED RED BLOOD CELLS 0.0 % (0.0-0.19); PLATELET COUNT (AUTO) 279 K/uL (130-400); RED BLOOD CELL COUNT(AUTO) 3.99 MIL/uL (4.00-5.50); RED CELL DISTRIBUTION WIDTH 14.8 % (11.0-15.5); WHITE BLOOD COUNT (AUTO) 8.1 K/uL (4.8-10.8)
[2025-04-08 12:07] LABS: CREATININE 0.9 mg/dL (0.5-1.0); GLOMERULAR FILTR. RATE CALC 71.0 mL/min (>90); GLUCOSE,RANDOM 229.0 mg/dL (70-105); SODIUM SERUM 140.0 mmol/L (136-145); UREA NITROGEN, BLOOD 10.0 mg/dL (7-18)
[2025-04-08 12:11] LABS: SARS-CoV-2, RNA, NAAT NEGATIVE SARS CoV-2 (NEGATIVE)
[2025-04-08 12:14] LABS: ASPARTATE AMINOTRANSFERASE 21.0 U/L (10-37); TOTAL PROTEIN, SERUM 6.8 g/dL (6.0-8.3)
[2025-04-08 12:15] LABS: INFLUENZA TYPE A Negative For Type A (NEGATIVE); INFLUENZA TYPE B Negative For Type B (NEGATIVE)
[2025-04-08] MEDS: PROCHLORPERAZINE 10MG/2ML INJ IV ONE (13:20)
[2025-04-08] MEDS: 0.9% NACL 500ML IV.SOLN 500 ML IV ONE (13:21)
[2025-04-08 14:30] VITALS: BP 137/73; PULSE 77; RESP 20; TEMP 98.1; O2SAT 99
[2025-04-08] MEDS ORDERED: NAPR-1196 PO (14:31)
[2025-04-08] MEDS ORDERED: PROC5TAB73 PO (14:31)
== END 2025-04-08 14:49 | disposition home or self-care (01) ==
LOC: EDH 11:03
DX: R51.9 Headache, unspecified (principal); R42 Dizziness and giddiness; R53.1 Weakness; E78.00 Pure hypercholesterolemia, unspecified; I10 Essential (primary) hypertension; I25.10 Atherosclerotic heart disease of native coronary artery without angina pectoris; Z79.52 Long term (current) use of systemic steroids; Z79.82 Long term (current) use of aspirin; Z79.899 Other long term (current) drug therapy; Z88.2 Allergy status to sulfonamides; Z95.1 Presence of aortocoronary bypass graft; Z20.822 Contact with and (suspected) exposure to COVID-19
CPT/HCPCS: 99284; 96374; 96375; 87635; 80076; 80048; 85025; 87804 ×2; 81001; 36415; 96372; J1885; J7040; J1200; J0780; J2405

== ENCOUNTER → 2025-06-24 | Outpatient (CLI) | payer OTHER ==
[~2025-06-24] MED LIST changes: +NAPR-1196 PO; +PROC5TAB73 PO
--- NOTE | 2025-06-25 01:58 | HMCIMG ---
STUDY MR lumbar spine without intravenous contrast. HISTORY M54.17 radiculopathy, lumbosacral region. TECHNIQUE Multiplanar multisequence magnetic resonance imaging of the lumbar spine obtained without intravenous contrast. COMPARISON None provided. FINDINGS Alignment There is grade I anterolisthesis of L4 over L5 related to advanced facet joint degeneration and subluxation. There is grade I anterolisthesis of L5 over S1 associated with bilateral pars interarticularis defects. No higher-grade listhesis is identified. Vertebrae No acute compression fracture or destructive osseous lesion is identified. Chronic pars interarticularis defects are present at L5 in keeping with isthmic spondylolisthesis. Conus and cauda equina The conus medullaris terminates at a normal level. No abnormal cord or cauda equina signal or intrinsic mass is seen. Paraspinal soft tissues Paraspinal soft tissues are unremarkable without significant collection or mass. Degenerative discs and canal by level L1-L2 Disc height and signal are preserved without focal herniation. No central canal stenosis or neural foraminal narrowing. Pfirrmann grade II disc. L2-L3 Mild disc desiccation without significant height loss and no focal herniation. No central canal stenosis or foraminal narrowing. Pfirrmann grade IIIII disc. L3-L4 Mild disc desiccation with early height loss and a small broad-based disc bulge. No significant central canal stenosis by Schizas criteria grade A. Neural foramina are adequately patent without significant stenosis by Tristian grading. Pfirrmann grade III disc. L4-L5 Moderate to severe disc degeneration with disc height loss and ponce desiccated disc signal. Annular fissuring is present. There is grade I anterolisthesis of L4 on L5 with severe facet arthrosis, most pronounced on the right, and associated facet subluxation. These changes result in severe central canal stenosis corresponding to Schizas grade C. There is severe right and moderate left neural foraminal stenosis with compression of the exiting and traversing nerve roots, more pronounced on the right, corresponding to severe right and moderate left Tristian foraminal grades. Overall Pfirrmann disc degeneration grade IV at this level. L5-S1 Moderate to severe disc degeneration with diffuse disc bulge and right posterior paracentral disc protrusion. Annular fissuring is present. There is associated grade I anterolisthesis of L5 on S1 with pars interarticularis defects and moderate facet arthrosis. The central canal remains adequately patent without significant stenosis by Schizas criteria grade AB. Neural foramina are preserved without significant stenosis by Tristian grading, and no definite exiting nerve root compression is identified. Pfirrmann disc degeneration grade IV at this level. Facet joints There is severe facet arthrosis at L4-L5, particularly on the right, with facet joint hypertrophy, subluxation, and joint space narrowing. Moderate facet degeneration is present at L5-S1. Facet joints at upper levels are within normal limits for age. IMPRESSION * Moderate to severe lumbar spondylosis predominantly at L4-L5 and L5-S1, with Pfirrmann grade IV disc degeneration at these levels. * Grade I anterolisthesis of L4 on L5 due to severe right-predominant facet arthrosis and subluxation, with associated annular fissuring and advanced degenerative disc disease, resulting in severe central canal stenosis (Schizas grade C) and severe right, moderate left foraminal stenosis (severe right and moderate left Tristian grades) with compression of the exiting and traversing nerve roots, concordant with L4-L5 radiculopathy. * Grade I anterolisthesis of L5 on S1 related to pars interarticularis defects and degenerative disc disease, with diffuse disc bulge and right posterior paracentral disc protrusion and annular fissuring but without significant central canal stenosis by Schizas grading or neural foraminal stenosis by Tristian grading. * No acute fracture or focal marrow-replacing lesion and no cord or cauda equina signal abnormality identified. /[place]
== END | disposition home or self-care (01) ==
LOC: RAH 12:45
PROVIDERS: ATTEND Pain Medicine Interventional Pain Medicine
DX: M47.27 Other spondylosis with radiculopathy, lumbosacral region (principal); G44.309 Post-traumatic headache, unspecified, not intractable; M43.17 Spondylolisthesis, lumbosacral region; M51.17 Intervertebral disc disorders with radiculopathy, lumbosacral region; M48.07 Spinal stenosis, lumbosacral region
CPT/HCPCS: 72148